=== PATIENT | female | born 1975 | race African-American/Black ===

== ENCOUNTER 2023-12-22 13:51 | Emergency (ER) | payer OTHER, SELFPAY ==
[2023-12-22] MEDS ORDERED: Ondansetron PF 4 MG/2 ML Vial ONE (14:31)
[2023-12-22] MEDS ORDERED: Pantoprazole 40 MG VIAL ONE (14:31)
[2023-12-22 14:57] LABS: #Basophils 0.03 10x3/uL (0.0-0.2); #Eosinphils 0.14 10x3/uL (0.0-0.5); #Monocytes 0.37 10x3/uL (0.0-1.1); #Neutrophils 4.09 10x3/uL (1.5-8.4); %Basophils 0.5 % (0.0-2.0); %Eosinophils 2.2 % (0.0-6.0); %Lymphocytes 27.4 % (18.0-47.0); %Monocytes 5.8 % (0.0-10.0); %Neutrophils 63.6 % (40.0-75.0); Hematocrit 40.4 % (34.9-44.5); Hemoglobin 14.3 g/dL (12.0-15.5); Mean Corpuscular HGB CONC 35.4 g/dL (32.0-36.0); Mean Corpuscular Hemoglobin 34.4 pg (27.0-33.0); Mean Corpuscular Volume 97.1 fL (81.6-98.3); Mean Platelet Volume 10.2 fL (7.4-10.4); Platelet Count 206 10x3/uL (150-450); RBC Distribution Width 13.6 % (11.5-14.5); Red Blood Cell (RBC) Count 4.16 10x6/uL (3.90-5.03); White Blood Cell (WBC) Count 6.4 10x3/uL (3.5-10.5)
[2023-12-22 15:12] LABS: ALT (SGPT) 18 U/L (8-55); AST (SGOT) 22 U/L (5-34); Albumin 3.6 g/dL (3.5-5.0); Alkaline Phosphatase 59 U/L (40-110); Anion Gap 11 mmol/L (10-20); BUN (Urea Nitrogen) 13 mg/dL (7.0-18.7); Bilirubin, Total 0.4 mg/dL (0.2-1.2); Calc. Creatinine Clearance 0 mL/min (70-130); Calcium 9.8 mg/dL (7.8-10.44); Carbon Dioxide 24 mmol/L (22-29); Chloride 109 mmol/L (98-107); Estimated GFR 59; Globulin 3.2 g/dL (2.4-3.5); Glucose 101 mg/dL (70-105); Lipase 33 U/L (8-78); Potassium 3.8 mmol/L (3.5-5.1); Protein, Total 6.8 g/dL (6.0-8.3); Sodium 140 mmol/L (136-145)
[2023-12-22 15:14] LABS: Bilirubin 1+ (Negative); Blood, Urine 10 (Negative); Clarity Cloudy (Clear); Glucose, Urine (Dipstick) Normal (Negative); Ketone, Urine 5 mg/dL (Negative); Leukocyte 100 (Negative); Nitrite Negative (Negative); Protein, Urine (Dipstick) 100 mg/dl (Neg-Trace)
[2023-12-22 15:18] LABS: Troponin I Less than 0.010 ng/mL (< 0.028)
[2023-12-22 16:00] LABS: CAUTI Indications for Culture Pelvic or flank pain; RBC/HPF 0-3 HPF (0-3); Renal Epithelial 0-3 HPF (None Seen); Squamous Epithelial 21-50 HPF (0-3); Transitional Epithelial 0-3 HPF (None Seen)
[2023-12-22 16:01] LABS: Bacteria/HPF 3+ HPF (None Seen); Trichomonas/HPF 1+ HPF (None Seen)
[2023-12-22 16:03] LABS: Epithelial Cast 0-3 LPF (None Seen); Mucous/LPF Rare LPF (<2+); Urine Culture Reflex No No
== END 2023-12-22 16:30 | disposition home or self-care (01) ==
LOC: CSHERS 13:51
DX: R10.13 Epigastric pain (principal); Z86.16 Personal history of COVID-19; R11.2 Nausea with vomiting, unspecified
CPT/HCPCS: 80053; 81001; 83690; 84484; 85025; 93005; C9113; J2405